=== PATIENT | male | born 1970 ===

== ENCOUNTER 2017-08-24 14:38 | Inpatient (IN) | payer MEDICARE ==
[2017-08-24] MEDS ORDERED: Bisacodyl 5 MG TAB PO PRN (16:12)
[2017-08-24] MEDS ORDERED: cefTRIAXone\\ROCEPHIN 1 GM in Sodium Chloride 0.9% 100 ML IVPB SCH (16:15)
--- NOTE | 2017-08-24 16:49 | ULT ---
EXAM: GALLBLADDER ULTRASOUND 08/24/17 HISTORY: Right upper quadrant pain. Chest pain. Symptoms times one week. COMPARISON: None. TECHNIQUE: Utilizing a multihertz transducer, sonographic imaging of the right upper quadrant was performed in t he longitudinal and transverse plane. FINDINGS: the hepatic parenchyma has a normal echo texture. No hepatic masses or intrahepatic biliary dilatatio n. Contour of the hepatic margin is maintained. Right hepatic lobe measures 15.2 cm. Within the lumen of the gallbladder, there is an echogenic focus measuring 0.9 cm, compatible with a gallstone. Gallbladder wall is not thickened. No pericholecystic fluid. Negative Hoang's sign. Common bile duct diameter is 0.4 cm. Right kidney has a normal cortical echotexture. No hydronephrosi s. Right kidney measures 5.5 x 5.2 x 10.8 cm. IMPRESSION: Sonographic evidence of cholelithiasis without evidence of cholecystitis. POS: [facility]
[2017-08-24] MEDS ORDERED: Azithromycin 500 MG in Sodium Chloride 0.9% 250 ML 250 ML IVPB SCH (17:00)
--- NOTE | 2017-08-24 17:15 | HP ---
PRIMARY CARE PHYSICIAN: Unknown. CHIEF COMPLAINT: Pain. HISTORY OF PRESENT ILLNESS: Mr. Black is a pleasant 47-year-old gentleman who was seen at [facility] following transfer from [facility]. He reports that about a week ago, he developed pain over his right lower ribs. He also reports some pain in the right upper quadrant. He reports that the pain is worse with coughing. He started cough ing approximately a week ago. The cough is nonproductive. He denies any fevers or chills. He descr ibes the pain as sharp, constant, worse with coughing, not accompanied by diarrhea or fevers. He rep orts vomiting twice yesterday. He denies any change in the color of his urine. He went to the [facility] room because of ongoing pain. REVIEW OF SYSTEMS: The following complete review of systems was negative, unless otherwise mentioned in the HPI or below: Constitutional: Weight loss or gain, ability to conduct usual activities. Skin: Rash, itching. Eyes: Double vision, pain. ENT/Mouth: Nose bleeding, neck stiffness, pain, tenderness. Cardiovascular: Palpitations, dyspnea on exertion, orthopnea. Respiratory: Shortness of breath, wheezing, cough, hemoptysis, fever or night sweats. Gastrointestinal: Poor appetite, abdominal pain, heartburn, nausea, vomiting, constipation, or diarr hea. Genitourinary: Urgency, frequency, dysuria, nocturia. Musculoskeletal: Pain, swelling. Neurologic/Psychiatric: Anxiety, depression. Allergy/Immunologic: Skin rash, bleeding tendency. PAST MEDICAL HISTORY: None. 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 SOCIAL HISTORY: The patient denies alcohol use or recreational drug use. He is a current smoker, re ports that a pack of cigarettes less in between 1 and 2 days. FAMILY HISTORY: No family history of cholelithiasis. ALLERGIES: No known drug allergies. CURRENT MEDICATIONS: None. PHYSICAL EXAMINATION: GENERAL: On examination, Mr. Black is awake and alert, not in acute distress. VITAL SIGNS: Blood pressure is 136/86, pulse is 100, he is breathing at rate of 22 and saturating 96 % on 2 liters of oxygen. He is afebrile. EYES: No scleral icterus. No conjunctival pallor. ENT: Dry mucosal membranes, no oropharyngeal erythema or exudates. NECK: Supple, nontender, normal range of movement, trachea is midline. RESPIRATORY: Accessory muscles of breathing are not active. Chest wall movements are symmetric bila terally. Lungs are clear to auscultation without wheeze, rhonchi or crepitations. CARDIOVASCULAR: S1 and S2 are heard, regular. Peripheral pulses palpable. No carotid bruit, no per icardial rub. ABDOMEN: Soft, mild right upper quadrant tenderness, no guarding or rigidity, bowel sounds heard, Mu rphy sign negative, no hepatomegaly, no splenomegaly. NEUROLOGIC: Cranial nerves II-XII are intact. Deep tendon reflexes are 2+. MUSCULOSKELETAL: He has reproducible tenderness over the right lower chest wall. Power is 5/5 in al l 4 extremities. Normal range of movement at all major extremity joints. SKIN: No rashes or subcutaneous nodules. LYMPHATIC: No cervical lymphadenopathy. PSYCHIATRIC: Normal mood, normal affect, patient is oriented to person, place, and time. LABORATORY DATA AND IMAGING: Mr. Black' labs and investigations were reviewed. He has leukocytosi s with 14,400 white cells, of which 79% are neutrophils. Hemoglobin is normal at 14, platelet count is normal at 299,000. Lactic acid is normal. Influenza screen is negative. Amylase is normal. Cre atinine is normal at 1.0. Sodium, potassium, AST, ALT, alkaline phosphatase, and bilirubin levels ar e all normal. INR is 1.14. Troponin I is less than 0.04. Urine drug screen is negative. BNP is 19 .7. He had an electrocardiogram, which showed sinus tachycardia. He also had a CT scan of the chest , abdomen, and pelvis done at [facility]. He was found to have mild perihilar interstit ial prominence consistent with viral bronchitis versus reactive airway disease versus chronic changes versus early failure. He had nonspecific infiltrates in bibasilar, right middle lobe and lingular a reas, consistent with pneumonia or atelectasis. He was also found to have partially distended gallbl adder with gallstone and gallbladder sludge and a mild gallbladder wall prominence. ASSESSMENT AND PLAN: Mr. Black is a pleasant 47-year-old gentleman who was seen at [facility] on 08/24/2017. His problem list includes: 1. Chest pain: He has a right lower chest pain. He had a CT scan of the chest done at the other [facility], which showed pneumonia. However, pulmonary embolism cannot be ruled out at this time. The e mergency room physician has ordered a D-dimer to rule out pulmonary embolism. 2. Pneumonia: Continue ceftriaxone and azithromycin. He was reportedly wheezing at the other [facility] ency room. Continue bronchodilators as needed. 3. Abdominal pain: On physical examination, most of the pain appears to be adjacent to the right lo wer ribs. He is having an abdominal ultrasound, we will await the result. This could be secondary t o cholelithiasis or from the chest wall. Given his normal liver function tests, it is unlikely to be secondary to choledocholithiasis. Hoang sign is negative on clinical exam, we will await ultrasoun d findings. 4. Tobacco abuse: The patient has been counseled regarding tobacco cessation. He does not want any nicotine replacement therapy at this time. Many thanks for allowing me to participate in your patient's care. Please feel free to contact me wi th any questions or concerns. LEVEL OF RISK: Moderate. LEVEL OF COMPLEXITY: Moderate.
[2017-08-24] MEDS: Sodium Chloride 0.9% 1,000 ML IV SCH (17:17)
[2017-08-24 17:21] VITALS: BMI 26.4
[2017-08-24] MEDS ORDERED: FLU VACC QS2017-18 36 mo. & older 0.5 ML SYRINGE IM ONE (17:45)
[2017-08-24] MEDS ORDERED: cefTRIAXone\\ROCEPHIN 1 GM, Syringe 0.4 ML in Sterile Water 9.6 ML SLOW IVP SCH (18:00)
[2017-08-24] MEDS ORDERED: CLOZAPINE PO SCH (21:00)
[2017-08-24] MEDS: Enoxaparin Sodium 100 MG/ML SYRINGE SC SCH (21:06)
[2017-08-24] MEDS ORDERED: Acetaminophen/Codeine 30-300mg Tablet PO PRN (21:20)
[2017-08-25] MEDS: Sodium Chloride 0.9% 1,000 ML IV SCH ×3 (04:50→20:28)
[2017-08-25 05:37] LABS: #Lymphocytes 1.8 thou/uL (1.20-3.40); #Monocytes 0.4 thou/uL (0.11-0.59); #Neutrophils 13.6 thou/uL (1.40-6.50); %Basophils 0.2 % (0.0-1.0); %Eosinophils 0.1 % (0.0-10.0); %Lymphocytes 11.2 % (21.0-51.0); %Monocytes 2.3 % (0.0-10.0); %Neutrophils 86.3 % (42.0-75.0); Hemoglobin 13.3 g/dL (14.0-18.0); Mean Corpuscular Hemoglobin 31.9 pg (27.0-31.0); Mean Corpuscular Volume 93.8 fl (80.0-94.0); Platelet Count 323 thou/uL (130-400); RBC Distribution Width 11.7 % (11.5-14.5); Red Blood Cell (RBC) Count 4.15 mill/uL (4.70-6.10); White Blood Cell (WBC) Count 15.7 thou/uL (4.8-10.8)
[2017-08-25 05:50] LABS: Anion Gap 11 mmol/L (10-20); BUN (Urea Nitrogen) 10 mg/dL (8.9-20.6); Calc. Creatinine Clearance 149 mL/min (70-130); Calcium 8.8 mg/dL (7.8-10.44); Carbon Dioxide 26 mmol/L (22-29); Chloride 110 mmol/L (98-107); Estimated GFR-MDRD Greater than 90; Glucose 137 mg/dL (70-105); Potassium 4.6 mmol/L (3.5-5.1); Sodium 142 mmol/L (136-145)
[2017-08-25] MEDS: cefTRIAXone\\ROCEPHIN 1 GM, Syringe 0.4 ML in Sterile Water 9.6 ML SLOW IVP SCH (08:10)
[2017-08-25] MEDS: Enoxaparin Sodium 100 MG/ML SYRINGE SC SCH (08:11)
[2017-08-25] MEDS: Azithromycin 500 MG in Sodium Chloride 0.9% 250 ML 250 ML IVPB SCH (08:11)
--- NOTE | 2017-08-25 08:57 | ULT ---
BILATERAL LOWER EXTREMITY VENOUS DOPPLER: Date: 08/25/17 HISTORY: Bilateral leg swelling. COMPARISON: None. TECHNIQUE: Real-time Lau scale and color Doppler with spectral analysis of the bilateral lower extremity venous system was performed with the linear transducer. Bilateral common femoral, femoral, proximal portion s of greater saphenous and deep femoral veins, as well as the popliteal and posterior tibial veins we re interrogated. FINDINGS: No deep venous thrombosis. Normal flow, augmentation, and compression. IMPRESSION: No deep venous thrombosis. POS: [facility]
[2017-08-25] MEDS ORDERED: Enoxaparin Sodium 40 MG/0.4 ML SYRINGE SC SCH (09:00)
[2017-08-25] MEDS: OLANZapine 5 MG TAB PO SCH (11:50)
--- NOTE | 2017-08-25 12:14 | RAD ---
2 VIEWS CHEST: Date: 08/25/17 HISTORY: Patient with respiratory distress. COMPARISON: VQ scan. FINDINGS: PA and lateral views of chest obtained. There is an area of subtle density in the area of lingula of the left upper lobe. This may represent a possible lingular areas of pneumonia. Correlate with clinic al exam. No evidence of effusions seen. No evidence of pneumothorax seen. IMPRESSION: Ill-defined area of density possibly in the region of the lingula. This may represent an area of pneu monia or possible mass. POS: [facility]
--- NOTE | 2017-08-25 12:16 | NM ---
LUNG PERFUSION SCAN: Date: 08/25/17 HISTORY: 47-year-old who attempted to use ventilator twice and therefore ventilation portion of exam could not performed. DOSE: 6.4 mCi technetium-99m MAA. FINDINGS: Lung perfusion scan was performed. No evidence of areas of perfusion abnormality seen. I do not see o bvious evidence of filling defect to be concerned for pulmonary embolus. IMPRESSION: Low probability lung perfusion scan for risk of pulmonary emboli. POS: [facility]
--- NOTE | 2017-08-25 13:32 | PDOC.PN ---
- Subjective Encounter Start Date: 08/25/17 Encounter Start Time: 13:31 Pt seen for followup re: pneumonia. Chest pain is better. Cough+. No fevers. - Objective MAR Reviewed: Yes Vital Signs & Weight: Vital Signs (12 hours) Temp Pulse Resp BP Pulse Ox 08/25/17 12:00 97.9 F 78 16 110/57 L 94 L 08/25/17 08:40 98.5 F 107 H 16 119/71 94 L 08/25/17 08:00 98.5 F 107 H 16 08/25/17 04:00 98.6 F 90 20 107/63 94 L Weight Weight 206 lb I&O: 08/24/17 08/25/17 08/26/17 06:59 06:59 06:59 Intake Total 2260 240 Balance 2260 240 Result Diagrams: 08/25/17 04:23 08/25/17 04:23 Phys Exam - Physical Examination Constitutional: NAD HEENT: moist MMs Neck: supple Respiratory: clear to auscultation bilateral Cardiovascular: RRR Gastrointestinal: soft Neurological: moves all 4 limbs Psychiatric: normal affect Dx/Plan (1) Pneumonia Code(s): J18.9 - PNEUMONIA, UNSPECIFIED ORGANISM Status: Acute (2) Chest pain Code(s): R07.9 - CHEST PAIN, UNSPECIFIED Status: Acute - Plan continue antibiotics, PT/OT, out of bed/ambulate * . Continue levofloxacin. No evidence of DVT or PE, decrease Lovenox dose. Pt takes Clozaril at home. Unable to obtain Clozaril here, family unable to bring his medication. Will start pt on olanzapine. Discussed with pharmacy. Review of Systems - Review of Systems Respiratory: Cough, Sputum. negative: Dry, Shortness of Breath, Hemoptysis, SOB with Excertion, Pleuritic Pain, Wheezing Cardiovascular: chest pain. negative: palpitations, orthopnea, paroxysmal nocturnal dyspnea, edema, light headedness - Medications/Allergies Allergies/Adverse Reactions: Allergies Allergy/AdvReac Type Severity Reaction Status Date / Time No Known Drug Allergies Allergy Verified 08/24/17 16:02 Medications: Current Medications Albuterol/Ipratropium (Duoneb) 3 ml NEB [id number] PRN PRN Reason: SOB &/or Wheezing Bisacodyl (Dulcolax) 10 mg PO DAILYPRN PRN PRN Reason: Constipation Enoxaparin Sodium (Lovenox) 40 mg SC 0900 [facility] Sodium Chloride (Normal Saline 0.9%) 1,000 mls @ 100 mls/hr IV .Q10H [facility] Last Admin: 08/25/17 08:18 Dose: 1,000 mls Azithromycin 500 mg/ Sodium (Chloride) 250 mls @ 250 mls/hr IVPB 1000 [facility] Last Admin: 08/25/17 08:11 Dose: 250 mls Ceftriaxone Sodium 1 gm/ (Syringe 0.4 ml/ Sterile Water) 10 mls @ 120 mls/hr SLOW IVP 0900 [facility] Last Admin: 08/25/17 08:10 Dose: 10 mls Olanzapine (Zyprexa) 5 mg PO 1000 [facility] Last Admin: 08/25/17 11:50 Dose: 5 mg Sodium Chloride (Flush - Normal Saline) 10 ml IVF Q12HR [facility] Last Admin: 08/25/17 08:11 Dose: Not Given Sodium Chloride (Flush - Normal Saline) 10 ml IVF PRN PRN PRN Reason: Saline Flush
[2017-08-25] MEDS: Acetaminophen/Codeine 30-300mg Tablet PO PRN (18:25)
[2017-08-26] MEDS: Sodium Chloride 0.9% 1,000 ML IV SCH ×2 (04:52→17:31)
[2017-08-26 05:09] LABS: #Basophils 0.1 thou/uL (0.0-0.2); #Lymphocytes 3.7 thou/uL (1.20-3.40); #Monocytes 0.7 thou/uL (0.11-0.59); %Basophils 0.7 % (0.0-1.0); %Eosinophils 0.1 % (0.0-10.0); %Lymphocytes 27.1 % (21.0-51.0); %Monocytes 5.1 % (0.0-10.0); %Neutrophils 66.9 % (42.0-75.0); Mean Corpuscular HGB CONC 33.3 g/dL (32.0-36.0); Mean Corpuscular Hemoglobin 31.4 pg (27.0-31.0); Mean Corpuscular Volume 94.3 fl (80.0-94.0); Platelet Count 279 thou/uL (130-400); RBC Distribution Width 11.7 % (11.5-14.5); Red Blood Cell (RBC) Count 4.14 mill/uL (4.70-6.10); White Blood Cell (WBC) Count 13.5 thou/uL (4.8-10.8)
[2017-08-26 05:26] LABS: Anion Gap 8 mmol/L (10-20); BUN (Urea Nitrogen) 13 mg/dL (8.9-20.6); Calc. Creatinine Clearance 142 mL/min (70-130); Calcium 8.6 mg/dL (7.8-10.44); Carbon Dioxide 29 mmol/L (22-29); Chloride 110 mmol/L (98-107); Estimated GFR-MDRD Greater than 90; Glucose 88 mg/dL (70-105); Potassium 4.2 mmol/L (3.5-5.1); Sodium 143 mmol/L (136-145)
[2017-08-26] MEDS: Acetaminophen/Codeine 30-300mg Tablet PO PRN ×2 (07:13→17:35)
[2017-08-26] MEDS: Enoxaparin Sodium 40 MG/0.4 ML SYRINGE SC SCH (07:14)
[2017-08-26] MEDS: cefTRIAXone\\ROCEPHIN 1 GM, Syringe 0.4 ML in Sterile Water 9.6 ML SLOW IVP SCH (08:47)
[2017-08-26] MEDS: Azithromycin 500 MG in Sodium Chloride 0.9% 250 ML 250 ML IVPB SCH (08:54)
[2017-08-26] MEDS: OLANZapine 5 MG TAB PO SCH (10:40)
--- NOTE | 2017-08-26 15:56 | PDOC.PN ---
- Subjective Encounter Start Date: 08/26/17 Encounter Start Time: 08:20 Pt seen for followup re: pneumonia. Says he feels better. Cough+, sputum+. - Objective MAR Reviewed: Yes Vital Signs & Weight: Vital Signs (12 hours) Temp Pulse Resp BP Pulse Ox 08/26/17 11:00 98.8 F 86 16 94/53 L 99 08/26/17 08:00 98.7 F 83 16 127/70 91 L 08/26/17 05:00 97.6 F 78 18 120/75 93 L Weight Weight 206 lb I&O: 08/25/17 08/26/17 08/27/17 06:59 06:59 06:59 Intake Total 2260 5260 Balance 2260 5260 Result Diagrams: 08/26/17 04:32 08/26/17 04:33 Phys Exam - Physical Examination Constitutional: NAD HEENT: moist MMs Neck: supple Respiratory: clear to auscultation bilateral Cardiovascular: RRR Gastrointestinal: soft Neurological: moves all 4 limbs Psychiatric: normal affect Skin: no rash Dx/Plan (1) Pneumonia Code(s): J18.9 - PNEUMONIA, UNSPECIFIED ORGANISM Status: Acute (2) Hypoxia Code(s): R09.02 - HYPOXEMIA Status: Acute (3) Chest pain Code(s): R07.9 - CHEST PAIN, UNSPECIFIED Status: Resolved - Plan continue antibiotics, out of bed/ambulate * . Continue IV ceftriaxone, azithromycin. Pt still needing supplemental oxygen, will try to wean him off. Likely home 24-48 h. Review of Systems - Review of Systems Constitutional: negative: fever, chills, sweats, weakness, malaise Respiratory: Cough, Sputum. negative: Dry, Shortness of Breath, Hemoptysis, SOB with Excertion, Pleuritic Pain, Wheezing Cardiovascular: negative: chest pain, palpitations, orthopnea, paroxysmal nocturnal dyspnea, edema, light headedness - Medications/Allergies Allergies/Adverse Reactions: Allergies Allergy/AdvReac Type Severity Reaction Status Date / Time No Known Drug Allergies Allergy Verified 08/24/17 16:02 Medications: Current Medications Acetaminophen/Codeine Phosphate (Tylenol #3) 1 tab PO Q4H PRN PRN Reason: Moderate Pain (4-6) Last Admin: 08/26/17 07:13 Dose: 1 tab Albuterol/Ipratropium (Duoneb) 3 ml NEB [id number] PRN PRN Reason: SOB &/or Wheezing Bisacodyl (Dulcolax) 10 mg PO DAILYPRN PRN PRN Reason: Constipation Enoxaparin Sodium (Lovenox) 40 mg SC 0900 [facility] Last Admin: 08/26/17 07:14 Dose: 40 mg Sodium Chloride (Normal Saline 0.9%) 1,000 mls @ 100 mls/hr IV .Q10H [facility] Last Admin: 08/26/17 04:52 Dose: 1,000 mls Azithromycin 500 mg/ Sodium (Chloride) 250 mls @ 250 mls/hr IVPB 1000 [facility] Last Admin: 08/26/17 08:54 Dose: 250 mls Ceftriaxone Sodium 1 gm/ (Syringe 0.4 ml/ Sterile Water) 10 mls @ 120 mls/hr SLOW IVP 0900 [facility] Last Admin: 08/26/17 08:47 Dose: 10 mls Olanzapine (Zyprexa) 5 mg PO 1000 [facility] Last Admin: 08/26/17 10:40 Dose: 5 mg Sodium Chloride (Flush - Normal Saline) 10 ml IVF Q12HR [facility] Last Admin: 08/26/17 08:45 Dose: Not Given Sodium Chloride (Flush - Normal Saline) 10 ml IVF PRN PRN PRN Reason: Saline Flush
[2017-08-27] MEDS: Sodium Chloride 0.9% 1,000 ML IV SCH ×2 (03:55→14:53)
[2017-08-27 05:54] LABS: #Basophils 0.1 thou/uL (0.0-0.2); #Monocytes 0.8 thou/uL (0.11-0.59); %Basophils 0.5 % (0.0-1.0); %Eosinophils 0.3 % (0.0-10.0); %Lymphocytes 27.6 % (21.0-51.0); %Monocytes 7.1 % (0.0-10.0); %Neutrophils 64.5 % (42.0-75.0); Hemoglobin 13.6 g/dL (14.0-18.0); Mean Corpuscular HGB CONC 33.5 g/dL (32.0-36.0); Mean Corpuscular Hemoglobin 31.4 pg (27.0-31.0); Mean Corpuscular Volume 93.5 fl (80.0-94.0); Mean Platelet Volume 8.1 fL (7.4-10.4); Platelet Count 283 thou/uL (130-400); RBC Distribution Width 11.7 % (11.5-14.5); Red Blood Cell (RBC) Count 4.32 mill/uL (4.70-6.10); White Blood Cell (WBC) Count 10.8 thou/uL (4.8-10.8)
[2017-08-27 06:04] LABS: Anion Gap 9 mmol/L (10-20); BUN (Urea Nitrogen) 8 mg/dL (8.9-20.6); Calc. Creatinine Clearance 153 mL/min (70-130); Calcium 8.9 mg/dL (7.8-10.44); Carbon Dioxide 30 mmol/L (22-29); Chloride 105 mmol/L (98-107); Estimated GFR-MDRD Greater than 90; Glucose 84 mg/dL (70-105); Sodium 140 mmol/L (136-145)
[2017-08-27] MEDS: cefTRIAXone\\ROCEPHIN 1 GM, Syringe 0.4 ML in Sterile Water 9.6 ML SLOW IVP SCH (08:06)
[2017-08-27] MEDS: Enoxaparin Sodium 40 MG/0.4 ML SYRINGE SC SCH (08:09)
[2017-08-27] MEDS: Acetaminophen/Codeine 30-300mg Tablet PO PRN (08:09)
[2017-08-27] MEDS: OLANZapine 5 MG TAB PO SCH (09:18)
[2017-08-27] MEDS: Azithromycin 500 MG in Sodium Chloride 0.9% 250 ML 250 ML IVPB SCH (09:18)
--- NOTE | 2017-08-27 12:04 | DIS ---
DATE OF ADMISSION: 08/24/2017 DATE OF DISCHARGE: 08/27/2017 PRIMARY CARE PHYSICIAN: Unknown. DISCHARGE DIAGNOSIS: Community-acquired pneumonia. CONDITION OF PATIENT AT THE TIME OF DISCHARGE: Stable. Mr. Black was assessed by me on the day of discharge. He denies any chest pain or shortness of mauro ath. Vital signs are stable, he is not requiring supplemental oxygen. S1 and S2 are heard, regular. Lungs are clear to auscultation bilaterally. HOSPITAL COURSE: Mr. Black is a pleasant 47-year-old gentleman who was admitted to [facility] on 08/24/2017 for lingular pneumonia. He was treated with antibiotics, with impro vement of his symptoms. He had an elevated D-dimer. Bilateral lower extremity venous Doppler did no t reveal any deep vein thrombosis. He also had pulmonary perfusion imaging, which was low probabilit y for pulmonary emboli. He was hypoxic and required supplemental oxygen. On the day of discharge, he is not needing any supp lemental oxygen. He is being transitioned to oral antibiotics and discharged home. During this hospitalization, he did not have access to his Clozaril. He was treated with olanzapine 5 mg daily during the hospitalization. He has been advised to follow up with his psychiatrist and in formed them of the situation. He has been advised to resume Clozaril on discharge. DISCHARGE MEDICATIONS: Clozaril 300 mg daily, Z-FARTUN and cefdinir 300 mg 2 times a day for 10 days. On the day of discharge, he has a white count of 10,800, hemoglobin 13.6, platelet count 283,000, nor mal sodium, normal potassium, and creatinine 0.78. Many times for allowing me to participate in your patient's care. Please feel free to contact me wit h any questions or concerns. DISCHARGE DESTINATION: Home. TOTAL AMOUNT OF TIME SPENT COORDINATING THIS DISCHARGE: 33 minutes.
--- NOTE | 2017-08-27 17:39 | PDOC.PN ---
- Subjective Encounter Start Date: 08/27/17 Encounter Start Time: 17:38 Pt seen for followup re: pneumonia. No complaints. - Objective Vital Signs & Weight: Vital Signs (12 hours) Temp Pulse Resp BP Pulse Ox 08/27/17 15:19 98.0 F 94 18 114/66 96 08/27/17 08:00 98.2 F 74 18 128/75 95 Weight Weight 206 lb I&O: 08/26/17 08/27/17 08/28/17 06:59 06:59 06:59 Intake Total 5260 4080 1999 Balance 5260 4080 1999 Result Diagrams: 08/27/17 04:59 08/27/17 04:59 Phys Exam - Physical Examination Constitutional: NAD HEENT: moist MMs Neck: supple Respiratory: clear to auscultation bilateral Cardiovascular: RRR Gastrointestinal: soft Neurological: moves all 4 limbs Psychiatric: normal affect Dx/Plan (1) Pneumonia Code(s): J18.9 - PNEUMONIA, UNSPECIFIED ORGANISM Status: Acute (2) Hypoxia Code(s): R09.02 - HYPOXEMIA Status: Resolved (3) Chest pain Code(s): R07.9 - CHEST PAIN, UNSPECIFIED Status: Resolved - Plan continue antibiotics, out of bed/ambulate * . Pt waqs discharged today but does not have a ride. Will discharge him tomorrow. Review of Systems - Review of Systems Respiratory: negative: Cough, Dry, Shortness of Breath, Hemoptysis, SOB with Excertion, Pleuritic Pain, Sputum, Wheezing Cardiovascular: negative: chest pain, palpitations, orthopnea, paroxysmal nocturnal dyspnea, edema, light headedness - Medications/Allergies Allergies/Adverse Reactions: Allergies Allergy/AdvReac Type Severity Reaction Status Date / Time No Known Drug Allergies Allergy Verified 08/24/17 16:02 Medications: Current Medications Acetaminophen/Codeine Phosphate (Tylenol #3) 1 tab PO Q4H PRN PRN Reason: Moderate Pain (4-6) Last Admin: 08/27/17 08:09 Dose: 1 tab Albuterol/Ipratropium (Duoneb) 3 ml NEB [id number] PRN PRN Reason: SOB &/or Wheezing Bisacodyl (Dulcolax) 10 mg PO DAILYPRN PRN PRN Reason: Constipation Cefdinir (Omnicef) 300 mg PO BID [facility] Enoxaparin Sodium (Lovenox) 40 mg SC 0900 [facility] Last Admin: 08/27/17 08:09 Dose: 40 mg Sodium Chloride (Normal Saline 0.9%) 1,000 mls @ 100 mls/hr IV .Q10H [facility] Last Admin: 08/27/17 14:53 Dose: Not Given Azithromycin 500 mg/ Sodium (Chloride) 250 mls @ 250 mls/hr IVPB 1000 [facility] Last Admin: 08/27/17 09:18 Dose: 250 mls Olanzapine (Zyprexa) 5 mg PO 1000 [facility] Last Admin: 08/27/17 09:18 Dose: 5 mg Sodium Chloride (Flush - Normal Saline) 10 ml IVF Q12HR [facility] Last Admin: 08/27/17 08:10 Dose: 10 ml Sodium Chloride (Flush - Normal Saline) 10 ml IVF PRN PRN PRN Reason: Saline Flush
[2017-08-27] MEDS: Cefdinir 300 MG CAP PO SCH (20:05)
[2017-08-28] MEDS: Sodium Chloride 0.9% 1,000 ML IV SCH (00:07)
[2017-08-28 08:18] VITALS: BP 131/81; TEMP 98
[2017-08-28] MEDS: Cefdinir 300 MG CAP PO SCH (09:21)
[2017-08-28] MEDS: Enoxaparin Sodium 40 MG/0.4 ML SYRINGE SC SCH (09:22)
--- NOTE | 2017-08-28 23:30 | DIS ---
DATE OF ADMISSION: 08/24/2017 DATE OF DISCHARGE: 08/28/2017 DISCHARGE DIAGNOSIS: Community-acquired pneumonia. CONDITION OF PATIENT AT THE TIME OF DISCHARGE: Stable. I assessed Mr. Black on 08/28/2017. He rm d no complaints. PHYSICAL EXAMINATION: Vital signs are stable. S1 and S2 are heard, regular. Lungs are clear to aus cultation bilaterally. HOSPITAL COURSE: Please refer to an earlier discharge summary dictated on 08/27/2017. Patient could not be discharged home on the day because he did not have ride home. Otherwise, there are no change s to his medications. DISCHARGE DESTINATION: Home. TOTAL AMOUNT OF TIME SPENT COORDINATING THIS DISCHARGE: 18 minutes.
== END 2017-08-28 10:16 | disposition home or self-care (01) | DRG 195 ==
LOC: ERS 14:38 → T4-A 16:41
PROVIDERS: ADMIT Internal Medicine; ATTEND Internal Medicine
DX: J18.9 Pneumonia, unspecified organism (principal); F17.210 Nicotine dependence, cigarettes, uncomplicated; R09.02 Hypoxemia; R07.9 Chest pain, unspecified; F39 Unspecified mood [affective] disorder
CPT/HCPCS: 36415; 71046; 76705; 78582; 80048; 85025; 85379; 87040; 93970; A4216; A9540; A9558; J0456; J0696; J1650; J7050